=== PATIENT | male | born 1985 | race Caucasian/White ===

== ENCOUNTER 2022-02-03 14:03 | Emergency (ER) | payer MEDICAID, SELFPAY ==
[2022-02-03 14:08] VITALS: BP 132/79; PULSE 100; RESP 14; TEMP 36.7; O2SAT 99; BMI 21.4
--- NOTE | 2022-02-03 14:38 | XR_ITS ---
WS: [id number] Portable AP upright chest, 02/03/2022 Clinical Data: shortness of breath Comparison: None. Findings: No nodules, masses or effusions are seen. The heart is normal. The pulmonary vascularity is not increased. No pneumonia or pneumothorax is seen. There is an old fracture of the midshaft of the right clavicle. Monitor leads are on the chest wall. XR/XR chest 1V portable [id number] Impression: Negative chest.
--- NOTE | 2022-02-03 14:49 | ECG_ITS ---
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 Measurements Intervals [place] Rate: 89 P: 75 LA: 158 QRS: 83 QRSD: 98 T: 73 QT: 357 QTc: 435 Interpretive Statements SINUS RHYTHM POSSIBLE RIGHT ATRIAL ENLARGEMENT [0.25mV P-WAVE] No previous ECG available for comparison Electronically Signed On 02-03-2022 15:17:08 WARP TESTER by Sanjeev Adler M.D. [email or web address] county memorial hospitalPOPS Worldwidechillicothe va medical centerNeoconix/store/OM/[id number]
[2022-02-03 15:26] LABS: Basophils # 0.1 10^3/uL (0.0-0.1); Basophils % 0.8 %; Eosinophils # 0.3 10^3/uL (0.0-0.8); Eosinophils % 3.1 %; Hematocrit 46.3 % (42.0-52.0); Hemoglobin 15.1 g/dL (11.7-16.6); Lymphocytes # 1.9 10^3/uL (0.8-4.8); Lymphocytes % 17.6 %; Mean Corpuscular HGB Conc 32.6 g/dL (30.0-36.0); Mean Corpuscular Volume 91.9 fl (80-94); Mean Platelet Volume 10.3 fL (7.4-10.4); Monocytes # 0.6 10^3/uL (0.2-0.9); Monocytes % 5.7 %; Neutrophils # 7.81 10^3/uL (1.8-7.7); Neutrophils % 72.4 %; Nucleated Red Blood Cells % 0 %; Platelet Count 301 10^3/cmm (130-400); Red Blood Count 5.04 10^6/uL (4.1-5.3); Red Cell Distribution Width 12.4 % (12.1-15.1); White Blood Count 10.8 10^3/uL (4.0-10.0)
[2022-02-03 15:40] LABS: Troponin(5th) Baseline 6 ng/L (0-15)
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
[2022-02-03 15:50] LABS: Anion Gap 13.3 (5-19); Blood Urea Nitrogen 23 mg/dL (6-20); Calcium 9.6 mg/dL (8.5-10.5); Carbon Dioxide 28 mmol/L (22-29); Chloride 105 mmol/L (98-107); Glomerular Filtration Rate 61.8 mL/min (90-130); Glucose 90 mg/dL (65-115); NT Pro B Type Natriuretic Pept 12 pg/mL (0-125); Osmolality Calculated 297 mOsm/kg (285-295); Potassium 4.3 mmol/L (3.5-5.1); Sodium 142 mmol/L (136-145)
[2022-02-03 15:57] LABS: Influenza A by IFA negative (Negative); Influenza B by IFA negative (Negative); SARS Covid-2 Antigen negative (Negative)
[2022-02-03] MEDS: ketorolac 30 mg/mL INJ 15 MG IVP (16:01)
--- NOTE | 2022-02-03 16:40 | ECG_ITS ---
[facility] Test Date: 2022-02-03 Pat Name: Neftaly Joshi Department: Room: Gender: Male Cardiac Nurse: : 1985 Requested By: Porfirio Dave Order Number: [id number] Reading MD: Sanjeev Adler M.D. Measurements Intervals [place] Rate: 71 P: 83 NC: 170 QRS: 85 QRSD: 98 T: 70 QT: 398 QTc: 435 Interpretive Statements SINUS RHYTHM WITH SINUS ARRHYTHMIA Compared to ECG 02/03/2022 14:49:46 No significant changes Electronically Signed On 02-03-2022 23:52:46 PEER COUNSELOR by Sanjeev Adler M.D. [email or web address] memorial hospitalSynchronytrinity [email or web address] system.[employer]/store/[id number]
[2022-02-03] MEDS: sodium chloride 0.9% 1,000 ML 999 ML IV (17:15)
--- NOTE | 2022-02-03 17:19 | CTR_ITS ---
PROCEDURE INFORMATION: Exam: CTA Chest With Contrast Exam date and time: 02/03/2022 5:43 PM Age: 36 years old Clinical indication: Shortness of breath; Additional info: Shortness of breath; Mildly abnormal ekg and ddimer, R/O pe TECHNIQUE: Imaging protocol: Computed tomographic angiography of the chest with contrast. 3D rendering (Not supervised by radiologist): MIP and/or 3D reconstructed images were created by the technologist. Radiation optimization: All CT scans at this facility use at least one of these dose optimization techniques: automated exposure control; mA and/or kV adjustment per patient size (includes targeted exams where dose is matched to clinical indication); or iterative reconstruction. Contrast material: OMNIPAQUE 350; Contrast volume: 91 ml; Contrast route: INTRAVENOUS (IV); COMPARISON: CR XR chest 1V portable [id number] 02/03/2022 2:53 PM RADIATION DOSE METRICS: Total DLP (mGy-cm): 281.31 FINDINGS: Pulmonary arteries: Normal. No pulmonary emboli. Aorta: Unremarkable. No aortic aneurysm. No aortic dissection. Lungs: Very mild bronchial wall thickening diffusely. Minimal diffuse bronchiectasis. Negative for endobronchial obstruction. Small clustered area of inflammatory or infectious tree-in-bud distribution ground-glass nodules of the anterior inferior lingula and right middle lobe. Pleural spaces: Unremarkable. No pneumothorax. No pleural effusion. Heart: Unremarkable. No cardiomegaly. No pericardial effusion. Lymph nodes: Unremarkable. No enlarged lymph nodes. Bones/joints: Unremarkable. No acute fracture. Soft tissues: Unremarkable. CT/CT angio chest PE protcl [id number] IMPRESSION: 1. Negative for pulmonary embolism. 2. Mild degree of inflammatory or infectious bronchiolitis changes of both right middle lobe and lingula aspect of the left upper lobe.
[2022-02-03 17:51] LABS: Troponin 5 2HR 7.27 ng/L (0-15)
[2022-02-03] MEDS: iohexol 350 mg/mL 500 mL Btl (per mL) IV (17:54)
[2022-02-03 18:15] VITALS: BP 140/90; PULSE 80; RESP 18; O2SAT 100
[2022-02-03 18:30] VITALS: BP 114/80; PULSE 82; RESP 21; O2SAT 100
[2022-02-03 18:32] LABS: Troponin 5 2HR Delta 1.27 ABS# (0-10)
[2022-02-03 18:45] VITALS: BP 114/80
== END 2022-02-03 18:57 | disposition home or self-care (01) ==
PROVIDERS: Emergency Provider Family Medicine; PCP Family Medicine
DX: J47.9 Bronchiectasis, uncomplicated (principal); Z20.822 Contact with and (suspected) exposure to COVID-19; F17.210 Nicotine dependence, cigarettes, uncomplicated
CPT/HCPCS: 71045; 71275; 80048; 83880; 84484; 85025; 85378; 87426; 87804; 93005; 96374; 99285; J1885; J7030; Q9967

== ENCOUNTER 2022-07-01 16:49 | Emergency (ER) | payer MEDICAID, SELFPAY ==
[2022-07-01 16:52] VITALS: BP 116/74; PULSE 85; RESP 18; TEMP 36.7; O2SAT 98
--- NOTE | 2022-07-01 16:56 | XRR_ITS ---
PROCEDURE INFORMATION: Exam: XR Right Hand Exam date and time: 07/01/2022 4:59 PM Age: 36 years old Clinical indication: Pain; Hand; Right; Additional info: Punched wall TECHNIQUE: Imaging protocol: Radiologic exam of the right hand. Views: 3 or more views. COMPARISON: No relevant prior studies available. FINDINGS: Bones/joints: There is a dislocation of the base of the 4th and 5th metacarpals best appreciated on the lateral view. Small fracture fragments are noted adjacent to the dislocated 4th and 5th metacarpals that may be arising from either metacarpal or the hamate. Old healed fracture deformity of the 2nd middle phalanx. Soft tissues: There is abundant soft tissue edema. No foreign body. XR/XR hand RT min 3V* [id number] IMPRESSION: 1. There is a dislocation of the base of the 4th and 5th metacarpals best appreciated on the lateral view. 2. Small fracture fragments are noted adjacent to the dislocated 4th and 5th metacarpals that may be arising from either metacarpal or the hamate. CT scan may be helpful for further evaluation.
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
[2022-07-01] MEDS: HYDROcodone-acetaminophen 10-325 mg Tablet 1 TAB PO (17:49)
--- NOTE | 2022-07-03 09:18 | DCPLANNER ---
Addendum entered by Graciela Bland 07/05/22 14:09: Patient had a follow up appointment scheduled with ortho - patient did attend appointment. Original Note: information technology audit manager had message to schedule a follow up appointment for patient with ortho. information technology audit manager sent patients information to the front office staff at ortho. Patients information will be printed and reviewed. Clinic will call patient with appointment information.
== END 2022-07-01 17:50 | disposition home or self-care (01) ==
PROVIDERS: Emergency Provider Nurse Practitioner Family; PCP Family Medicine
DX: S63.054A Dislocation of other carpometacarpal joint of right hand, initial encounter (principal); F17.210 Nicotine dependence, cigarettes, uncomplicated; W22.8XXA Striking against or struck by other objects, initial encounter
CPT/HCPCS: 29125; 73130; 99283

== ENCOUNTER → 2022-07-03 16:37 | Outpatient (BNVA) | payer MEDICAID, SELFPAY | PROVIDERS: PCP Family Medicine; Referring Provider Nurse Practitioner Family; Visit Provider Student in an Organized Health Care Education/Training Program | DX: W22.09XA Striking against other stationary object, initial encounter (principal); S63.054A Dislocation of other carpometacarpal joint of right hand, initial encounter | CPT/HCPCS: 73130 ==

== ENCOUNTER 2022-07-04 06:25 | Day surgery (SDC) | payer MEDICAID, SELFPAY ==
[2022-07-04] VITALS (16 sets, daily range): BP systolic 114–208; BP diastolic 73–134; PULSE 66–100; RESP 16–18; TEMP 36.2–36.7; O2SAT 97–100
--- NOTE | 2022-07-04 | XR_ITS ---
WS: [id number] C-ARM RADIOGRAPHS RIGHT HAND; 6 IMAGES HISTORY: percutaneous pinning right fourth and fifth metacarpal COMPARISON: RIGHT hand radiograph 07/03/2022 Intraoperative reduction of the dorsal displacement of the fourth and fifth metacarpals with respect to the carpal bones. Intraoperative pin fixation. Pin fixation across the third, fourth and fifth pro ximal metacarpals. Additional pin fixation between the carpal and fourth and fifth metacarpals. XR/XR finger RT min 2V [id number] IMPRESSION: Intraoperative reduction of the fourth and fifth displaced metacarpals with pin fixation.
[2022-07-04] MEDS: ketorolac 30 mg/mL INJ IVP (06:44)
[2022-07-04] MEDS: acetaminophen 1,000 MG/100 ML PIGGYBACK 400 MG IV (06:44)
[2022-07-04] MEDS: sodium chloride 0.9% 1,000 ML 30 ML IV (06:55)
--- NOTE | 2022-07-04 07:03 | ANES.PREANE2 ---
Pre-Anesthetic Assessment Height/Weight: Height 1.75 m Weight 70.307 kg Temp Pulse Resp BP Pulse Ox O2 Del Method 98.0 F 66 18 125/73 100 Room Air 07/04/22 06:41 07/04/22 06:41 07/04/22 06:41 07/04/22 06:41 07/04/22 06:41 07/04/22 06:41 Preop Diagnosis: Right fourth and fifth carpometacarpal joint fracture dislocation Operation Date: 07/04/22 08:05 Proposed Procedures p closed versus opend reduction internal fixation of right 4th and 5th metacarpal:[id number](Right) - Albert Danish, DO Familial anesthetic complications: None Was Beta Max taken within 24 hours: N/A Was Clonidine taken within 24 hours: N/A Last intake: Intake Last Liquid Date 07/03/22 Last Liquid Time 22:00 Last Solid Date 07/03/22 Last Solid Time 21:30 Social Tobacco and No alcohol former ETOH Exam No alert, No oriented x 3, No clear to auscultation bilaterally and No regular rate & rhythm Airway Mallampati: Class II Dentition: full Comments: Comments: mega Neuropsych Seizure (epilepsy - last seizure over a year ago, took his anti-seizure meds as scheduled) Anesthetic Plan ASA status: 2 Anesthesia: General Risk of > 500 ml blood loss (7ml/kg in children): No Medications/Allergies Home Medications Medication Instructions Recorded Confirmed Last Taken Type lamotrigine 200 mg tablet 300 mg PO BID #30 tabs 05/03/22 07/03/22 07/03/22 Rx (Lamictal) quetiapine 100 mg tablet 100 mg PO BEDTIME #30 tabs 05/03/22 07/03/22 07/03/22 Rx tizanidine 4 mg tablet 4 mg PO TID PRN muscle spasticity 05/03/22 07/03/22 07/04/22 05:30 Rx #90 tabs gabapentin 300 mg capsule See Rx Instructions .Route 06/01/22 07/03/22 07/03/22 Rx .COMPLEX #30 caps hydrocodone 5 mg-acetaminophen 325 1 tab PO Q6H PRN pain (scale score 07/01/22 07/03/22 07/03/22 Rx mg tablet 7-10) #12 tabs ropinirole 0.5 mg tablet 0.5 mg PO BEDTIME 07/03/22 07/03/22 07/02/22 History Allergies Allergy/AdvReac Type Severity Reaction Status Date / Time No Known Drug Allergies Allergy Unknown Verified 07/03/22 17:29 Current Medications Generic Name Dose Route Start Last Admin Trade Name Freq PRN Reason Stop Dose Admin Sodium Chloride 1,000 mls @ 30 mls/hr 07/04/22 07:00 07/04/22 06:55 Sodium Chloride 0.9% IV 07/05/22 06:59 30 mls/hr .Q24H GRACE Administration PFSH Anesthesia Medical History Seizures Family History Grandfather Cancer Father Cancer skin Suicide, Onset Age: 44 Brother Diabetes Hypertension Grandmother Diabetes Hypertension Denies family history of CAD (coronary artery disease) Clotting disorder Dementia Hyperlipidemia Psychiatric illness Chronic kidney disease (CKD) Anesthesia complication Bleeding disorder Family history of premature coronary artery disease Lung disease Stroke Social History Smoking and tobacco status: current every day smoker Data Anesthesia Cardiac Studies: No Data to Display
--- NOTE | 2022-07-04 07:38 | W.PM.OPSUD ---
Surgery/Procedure H&P Update DATE OF PROCEDURE: July 04, 2022 DATE H&P PERFORMED: 07/03/22 CHANGES TO PREVIOUS DOCUMENTATION: None. Patient has right fourth and fifth metacarpal fracture dislocation. No change in HPI from yesterday's office visit. Plan for OR today. He understands risk benefits complication alternatives of surgery and elects to proceed with surgical intervention. All questions answered. PREOP DIAGNOSIS: Right fourth and fifth carpometacarpal joint fracture dislocation PRIMARY INDICATION FOR PROCEDURE: Right fourth and fifth carpometacarpal joint fracture dislocation PLANNED PROCEDURE: Operation Date: 07/04/22 08:05 Proposed Procedures p closed versus opend reduction internal fixation of right 4th and 5th metacarpal:[id number](Right) - Albert Peng DO
[2022-07-04] MEDS: ceFAZolin 2,000 MG in sodium chloride 0.9% (plus) 50 ML 100 MG IV (08:03)
--- NOTE | 2022-07-04 09:06 | P.OP_ITS ---
Brief Operative Note Date of procedure: 07/04/22 Pre-op diagnosis: Right fourth and fifth carpometacarpal joint fracture disloc ation Post-op diagnosis: same Procedure Done: Right fourth carpometacarpal joint fracture dislocation closed reduction percutaneous pinning Right fifth carpometacarpal joint fracture dislocation closed reduction and percutaneous pinning Surgeon: Albert Peng Estimated blood loss (mL): 1 Complications: None Post-op Plan: Patient taken to PACU in stable condition recovering well. Splint on in place. Will receive appropriate discharge directions as well as pain medication postoperatively. Plan for patient to follow-up in the orthopedic office in 2 weeks. Patient understands agrees with current plan. All questions answered. Condition: stable Disposition: same day Coding Level of Care Code Acute Code for Deyanira Spencer
--- NOTE | 2022-07-04 09:06 | P.OP_ITS ---
Operative Report Date of procedure: July 04, 2022 Pre-op diagnosis: Preop Diagnosis Right fourth and fifth carpometacarpal joint fracture dislocation Post-op diagnosis: Same Procedure done: Right fourth carpometacarpal joint fracture dislocation closed reduction percutaneous pinning Right fifth carpometacarpal joint fracture dislocation closed reduction percutaneous pinning Implants: 4x0.045 K wires Surgeon: Albert Peng DO Anesthesia: MAC (Local) Estimated blood loss (mL): 1 8 minutes IV fluids: 500 mL Complications: None Findings: See operative report narrative Condition: stable Disposition: same day Brief History: Patient is a 36-year-old male who sustained an injury to the right hand punching a wall sustaining a right fourth and fifth CMC joint fracture dislocation. He was seen evaluated in the office from the emergency department and he has persistent fracture dislocation at this point time given the inherent instabil ity of this injury as well as dislocated joint would recommend surgical intervention to optimize better hand function. We talked about risk benefits complication alternatives with surgical nonsurgical treatment options. Understanding risk for surgery patient elects proceed with right fourth and fifth carpometacarpal joint closed versus open reduction internal fixation. All questions answered. Consent obtained. Procedure: Patient seen evaluate in the preoperative holding area. Consent was reviewed and signed with patient. Correct extremity was then marked. Patient was then subsequently evaluated by anesthesia once cleared for surgery was taken back to the operative suite. Patient was then transported onto the OR table all bony prominences well-padded patient was appropriate secured to the bed. Patient had an armboard applied to the right upper extremity. Patient subsequently underwent anesthesia per the anesthesia department once properly anesthetized the right upper extremity was then prepped and draped in standard orthopedic fashion. Final timeout was performed. Patient received appropriate preoperative antibiotics. Mini fluoroscopic imaging was then brought in to evaluate the right hand which showed and confirmed a fourth and fifth fracture dislocation dorsally the CMC joint of the right hand. Esmarch tourniquet was used exsanguinate the right upper extremity tourniquet was insufflated 250 mmHg. I then performed a standard reduction maneuver of the base of the fourth and fifth metacarpals and confirmed with mini C arm to be in satisfactory position. At this point time I then loaded a 0.45 K wire and my initial K wire pin was planning to be through the base of the fifth fourth and third metacarpals. Once this pin was placed in satisfactory position with fluoroscopic imaging I then subsequently placed a pin along the base of the fifth and into the hamate which had excellent fixation and confirmed on fluoroscopic imaging. Next I then subsequently placed a base of the fourth into the hamate K wire at this point time in order to increase stability and added fixation and an additional fourth pin in parallel fashion to the 5 4 and 3 metacarpal pin this completed my fixation reduction was maintained throughout and final imaging was then taken after the pins were then appropriately bent and cut and pin caps were then applied this confirmed a fourth and fifth fracture dislocation its been satisfactory reduced as well as stable K wire pin fixation this was done with closed reduction percutaneous p inning I took the hand and wrist through range of motion and found fracture stability as well as assessed finger rotation using tenodesis and appropriate finger rotation cascade was noted. This completed surgical intervention. Tourniquet was deflated hemostasis satisfactory pin sites were then appropriately protected with Xeroform 4 x 4's ABD Curlex soft roll and a short arm cast was then applied for added protection. Patient was then awakened from anesthesia and taken PACU in stable condition. Disposition: Patient was taken to PACU in stable condition patient recovering well. Cast on in place clean dry and intact. Patient receive appropriate discharge instructions as well as pain medication postoperatively. Patient understands to keep cast on in place until his follow-up visit. He will will encourage finger range of motion he should continue to be nonweightbearing to the right hand. Ice and elevate as needed. Postoperative plan and course would be for repeat x- rays to the right hand in cast at 2-week follow-up visit with orthopedics. Can encourage finger range of motion as tolerated. No formal therapy until pins have been pulled at 6 weeks. If cast is in good condition and the patient having no issues this can be left on however if patient is having issues or cast appears dirty a new cast can be applied with the plan for a 4-week follow-up after the 2-week follow-up visit. Patient understands and agrees with current plan. All questions answered.
--- NOTE | 2022-07-04 09:06 | PM.PACU ---
PACU note Narrative: Patient taken to PACU in stable condition recovering well. Pain controlled. Dressings on in place to the right hand with splint clean dry and intact. Splint limits examination as well as local anesthetic. Patient does have decreased sensation secondary to local anesthetic to the fourth and fifth digits. Able to wiggle fingers brisk capillary refill less than 2 seconds. Exam: awake Disposition: discharged
[2022-07-04] MEDS: HYDROmorphone 1 mg/mL INJ 1 mL 0.5 MG IVP ×2 (09:11→09:38)
[2022-07-04] MEDS: hyDRALAzine 20 mg/mL INJ 1 mL 10 MG IVP (09:28)
[2022-07-04] MEDS: HYDROcodone-acetaminophen 5-325 mg Tablet 1 TAB PO (10:09)
--- NOTE | 2022-07-04 10:33 | SUR.PHASEII ---
HIGH BP Spoke with patient regarding high blood pressure. Two doses Hydralazine given in PACU. BP did decrease, however, wanted to address this with patient. He reports his PCP did have him on blood pressure medication, however, he did take himself off of it a long time ago. Advised patient to speak with him again regarding BP and medication. Dr. Lopez aware and had ordered the Hydralazine. Upon discharge, BP was 154/94.
--- NOTE | 2022-07-04 14:53 | ANE.PACU2 ---
Inpatient post-anesthesia follow up: Airway intact: Yes Vital signs: Temperature 97.8 F Pulse Rate 92 Respiratory Rate 18 Blood Pressure 156/94 Pulse Oximetry 100 Oxygen Delivery Me thod Room Air Oxygen Flow Rate 6 Fraction of Inspir ed Oxygen Hydration adequate: Yes Nausea and vomiting: No Pain level: 1 Mental status: Baseline
== END 2022-07-04 10:36 | disposition home or self-care (01) ==
PROVIDERS: PCP Family Medicine; Visit Provider Student in an Organized Health Care Education/Training Program
PROC: (CPT 26608; principal; 2022-07-04 07:55)
DX: S63.054A Dislocation of other carpometacarpal joint of right hand, initial encounter (principal); W22.09XA Striking against other stationary object, initial encounter; F17.200 Nicotine dependence, unspecified, uncomplicated
CPT/HCPCS: 26608 ×2; 73140; 76000; C1713; J0131; J0360; J0690; J1100; J1170; J1885; J2250; J2405; J2704; J3010; J7030

== ENCOUNTER → 2022-07-13 11:23 | Outpatient (BNVA) | payer MEDICAID, SELFPAY | PROVIDERS: PCP Family Medicine; Visit Provider Nurse Practitioner Family | DX: Z98.890 Other specified postprocedural states (principal); S63.054A Dislocation of other carpometacarpal joint of right hand, initial encounter; W22.09XA Striking against other stationary object, initial encounter | CPT/HCPCS: 73130 ==

== ENCOUNTER → 2022-07-24 08:54 | Outpatient (BNVA) | payer MEDICAID, SELFPAY | PROVIDERS: PCP Family Medicine; Visit Provider Student in an Organized Health Care Education/Training Program | DX: Z98.890 Other specified postprocedural states (principal); S63.054D Dislocation of other carpometacarpal joint of right hand, subsequent encounter; X58.XXXD Exposure to other specified factors, subsequent encounter | CPT/HCPCS: 73130 ==

== ENCOUNTER 2022-08-11 08:19 | Outpatient (CLI) | payer MEDICAID, SELFPAY | END 2022-08-11 08:20 | LOC: SOT 08-15 08:19 | PROVIDERS: PCP Family Medicine; Visit Provider Student in an Organized Health Care Education/Training Program | DX: S63.054A Dislocation of other carpometacarpal joint of right hand, initial encounter (principal); X58.XXXA Exposure to other specified factors, initial encounter | CPT/HCPCS: L3919 ==

== ENCOUNTER → 2022-08-11 08:25 | Outpatient (BNVA) | payer MEDICAID, SELFPAY | PROVIDERS: PCP Family Medicine; Visit Provider Student in an Organized Health Care Education/Training Program | DX: Z98.890 Other specified postprocedural states (principal); S63.054A Dislocation of other carpometacarpal joint of right hand, initial encounter; X58.XXXA Exposure to other specified factors, initial encounter; Z96.9 Presence of functional implant, unspecified | CPT/HCPCS: 73130 ==

== ENCOUNTER 2022-11-14 18:31 | Emergency (ER) | payer MEDICAID, SELFPAY ==
[2022-11-14 18:35] VITALS: BP 113/76; PULSE 64; RESP 16; TEMP 36.6; O2SAT 99; BMI 22.8
--- NOTE | 2022-11-14 19:15 | ED_ITS ---
HPI - Wound/Laceration General: Chief Complaint: Wound/Laceration Stated Complaint: Lt Thumb Finger Cut Time Seen by Provider: 11/14/22 19:15 History of Present Illness: Patient comes in for laceration to his left palmar thumb. Patient reports that he was throwing a metal pipe that had a jagged edge on it and it caused a laceration to his thumb. Patient has normal range of motion of the thumb. No tendon injury is noted. Patient refuses tetanus vaccination. Review of Systems General: Reports: 10 or more systems reviewed and unremarkable except in HPI and below Skin/Breast: Reports: new lesions [facility] PFSH: Medical History Seizures Family History Grandfather Cancer Father Cancer skin Suicide, Onset Age: 44 Brother Diabetes Hypertension Grandmother Diabetes Hypertension Denies family history of CAD (coronary artery disease) Clotting disorder Dementia Hyperlipidemia Psychiatric illness Chronic kidney disease (CKD) Anesthesia complication Bleeding disorder Family history of premature coronary artery disease Lung disease Stroke Social History Smoking and tobacco status: current every day smoker Alcohol intake: never Marital status: Single Current occupational status: unemployed Physical Exam Const: COMMON NORMALS: alert HENMT: COMMON NORMALS: normocephalic HEAD & SCALP: normocephalic Neck/C-Spine: COMMON NORMALS: full ROM Resp: COMMON NORMALS: normal respiratory effort and clear to auscultation bilaterally AUSCULTATION: clear to auscultation bilaterally Cardio: COMMON NORMALS: regular rate and regular rhythm RATE: regular rate RHYTHM: regular rhythm Extremity: COMMON NORMALS: full ROM LEFT UPPER EXTREMITY: Yes hand & digits (Laceration left palmar thumb approximately 5 cm) Neuro: SENSORIUM/ORIENTATION: Yes alert Procedures Laceration Laceration 1: Site: hand Side (If applicable): left Size (cm): 5 Description: linear Depth: simple, single layer Local Anesthetic: lidocaine 2% and with epi Amount of anesthesia used (mL): 5 Pre-repair: wound explored and irrigated extensively Skin layer closed with: nylon Size (cm): 4-0 Number of sutures: 8 Technique: simple, interrupted and horizontal mattress Course Vital Signs: Vital signs: Vital Signs Temperature 97.8 F 11/14/22 18:35 Pulse Rate 64 11/14/22 18:35 Respiratory Rate 16 11/14/22 18:35 Blood Pressure 113/76 11/14/22 18:35 Pulse Oximetry 99 11/14/22 18:35 Oxygen Delivery Me thod Room Air 11/14/22 18:35 MDM - Wound/Laceration Medical Decision Making 37-year-old male patient comes in today with laceration to the left thumb on the palmar aspect of it. It is linear and approximately 5 cm. Patient has normal range of motion of the thumb no tendon injuries noted. No foreign body is noted. Differential diagnosis includes tendon injury, foreign body, fracture, laceration. No sign or symptom of severe illness or injury is noted. No foreign body was noted in the wound and no fracture was noted. Offered patient a tetanus vaccine patient refused. Wound was approximated with 8 sutures patient tolerated well. Patient was recommended to keep the wound clean and dry and follow-up with primary care in 1 week for recheck. Patient reported understanding. No radiology studies performed this visit Discharge Plan Discharge Patient Disposition: Home Clinical Impression: Laceration of thumb, left Qualifiers: Encounter type: initial encounter Damage to nail status: without damage Foreign body presence: without foreign body Qualified Code(s): S61.012A - Laceration without foreign body of left thumb without damage to nail, initial encounter Condition: Stable Prescriptions: New cephalexin 500 mg capsule 500 mg PO BID 7 Days Qty: 14 0RF hydrocodone-acetaminophen 5-325 mg tablet 1 tab PO Q8H PRN (Reason: pain (scale score 7-10)) Qty: 6 0RF No Action (DME) Thermoplastic Splint See Rx Instructions .Route .MEDSUPPLY Qty: 1 0RF Rx Instructions: MP/PIP/DIP FREE lamotrigine [Lamictal] 200 mg tablet 300 mg PO BID Qty: 30 0RF hydrocodone-acetaminophen 5-325 mg tablet 1 tab PO Q6H PRN (Reason: pain (scale score 7-10)) 7 Days Qty: 28 0RF quetiapine 100 mg tablet 100 mg PO BEDTIME Qty: 30 2RF tizanidine 4 mg tablet 4 mg PO TID PRN (Reason: muscle spasticity) Qty: 90 2RF gabapentin 300 mg capsule See Rx Instructions .ROUTE .COMPLEX Qty: 30 0RF Dose Instruction: TAKE 1 CAPSULE BY MOUTH AT BEDTIME Rx Instructions: TAKE 1 CAPSULE BY MOUTH AT BEDTIME ropinirole 0.5 mg tablet 0.5 mg PO BEDTIME Discharge Orders: Discharge ED (Routine); Ordered 11/14/22 Ordered By: Domo Kenney Referrals: Arya Mueller, [Primary Care Provider] - Discharge Diet: Usual diet Discharge Activity: Increase activity as tolerated Patient Instructions: Finger Laceration (ED) Activity Restrictions/Additional Instructions: Keep wound clean and dry. Is important keep wound as dry as possible for the next 48 hours. After that you can wash gently with mild soap and water and cover for protection. Take cephalexin 500 mg twice a day for next 7 days. Sutures need to come out in 7 to 10 days. Use acetaminophen and ibuprofen for control of pain. Use hydrocodone for severe pain. Follow-up with primary care in 1 week for recheck. Return to ED for new concerns or worsening symptoms. Coding Level of Care Code ED [employer] A[employer] for Deyanira Spencer
[2022-11-14] MEDS: cephALEXin 500 mg Capsule PO (20:17)
[2022-11-14] MEDS: HYDROcodone-acetaminophen 5-325 mg Tablet 1 TAB PO (20:17)
== END 2022-11-14 20:28 | disposition home or self-care (01) ==
PROVIDERS: Emergency Provider Nurse Practitioner Family; PCP Family Medicine
DX: S61.012A Laceration without foreign body of left thumb without damage to nail, initial encounter (principal); F17.210 Nicotine dependence, cigarettes, uncomplicated; W26.8XXA Contact with other sharp object(s), not elsewhere classified, initial encounter
CPT/HCPCS: 12002; 99283

== ENCOUNTER → 2023-08-09 15:03 | Outpatient (BNVA) | payer MEDICAID, SELFPAY | PROVIDERS: PCP Family Medicine; Visit Provider Family Medicine | DX: R56.9 Unspecified convulsions (principal) | CPT/HCPCS: 80053; 80061; 84439; 84443; 85025 ==